=== PATIENT | female | born 1970 | race Caucasian/White ===

== ENCOUNTER 2017-03-03 10:39 | Day surgery (SDC) | payer OTHER ==
[2017-03-03] MEDS ORDERED: LIDOCAINE 1% (MPF) 30 ML INJ (12:23)
[2017-03-03] MEDS ORDERED: BUPIVACAINE 0.5% (SDV) 30 ML INJ (12:23)
[2017-03-03] MEDS ORDERED: DEXAMETHASONE 4 MG/ML 1 ML INJ ×3 (12:24→13:21)
[2017-03-03] MEDS ORDERED: NEOMYC/POLYMYX/BACIT 3.5GM OPH OINT (12:27)
[2017-03-03] MEDS ORDERED: FENTAnyl 50 MCG/ML VIAL (12:59)
[2017-03-03] MEDS ORDERED: PROPOFOL 20 ML (12:59)
[2017-03-03] MEDS ORDERED: MIDAZOLAM 1 MG/ML 2 ML INJ (12:59)
[2017-03-03] MEDS: LIDOCAINE 1% (MPF) 30 ML INJ INJ (13:05)
[2017-03-03] MEDS: BUPIVACAINE 0.5% (SDV) 30 ML INJ INJ (13:05)
[2017-03-03] MEDS ORDERED: KETOROLAC 30 MG INJ (13:20)
[2017-03-03] MEDS ORDERED: CEFAZOLIN 1 GM INJ (13:20)
[2017-03-03] MEDS ORDERED: ACETAMINOPHEN 1000MG/100ML IV 100 ML (13:20)
[2017-03-03] MEDS ORDERED: ONDANSETRON 4 MG INJ (13:20)
[2017-03-03] MEDS ORDERED: METOCLOPRAMIDE 10 MG INJ (13:20)
[2017-03-03] MEDS ORDERED: MEPERIDINE 25 MG INJ IV (13:30)
[2017-03-03] MEDS ORDERED: ONDANSETRON 4 MG INJ IV (13:30)
[2017-03-03] MEDS ORDERED: METOCLOPRAMIDE 10 MG INJ IV (13:30)
[2017-03-03] MEDS ORDERED: DIPHENHYDRAMINE 50 MG INJ IV (13:30)
[2017-03-03] MEDS ORDERED: EPHEDrine SULFATE 50 MG/5 ML SYG IV (13:30)
[2017-03-03] MEDS ORDERED: OXYCODONE/ACETAMINOPHEN (5/325) TAB PO ×2 (13:30)
[2017-03-03] MEDS ORDERED: HYDROmorphONE (0.2 MG/ML) 10ML SYG IV ×3 (13:30)
[2017-03-03] MEDS ORDERED: FENTAnyl 50 MCG/ML VIAL IV ×3 (13:30)
[2017-03-03] MEDS ORDERED: HYDROCODONE/APAP (5/325) TAB PO (15:00)
== END 2017-03-03 15:37 | disposition home or self-care (01) ==
LOC: SDS 10:39
DX: M20.41 Other hammer toe(s) (acquired), right foot (principal)
CPT/HCPCS: 28285

== ENCOUNTER 2018-06-15 07:49 | Day surgery (SDC) | payer OTHER ==
[~2018-06-15 07:49] MED LIST: CEFAZOLIN 2 GM/50 ML (PMX) 50 ML IVPB
[2018-06-15] MEDS: LACTATED RINGER'S 500 ML IV (08:40)
[2018-06-15] MEDS ORDERED: PROPOFOL 20 ML ×2 (08:44→10:07)
[2018-06-15] MEDS ORDERED: FENTAnyl 50 MCG/ML VIAL (08:44)
[2018-06-15] MEDS ORDERED: LIDOCAINE 2% (SDV) 5 ML INJ (08:44)
[2018-06-15] MEDS ORDERED: CEFAZOLIN 1 GM INJ (08:44)
[2018-06-15] MEDS ORDERED: MIDAZOLAM 1 MG/ML 2 ML INJ (08:44)
[2018-06-15] MEDS ORDERED: DEXAMETHASONE 4 MG/ML 5 ML INJ (09:54)
[2018-06-15] MEDS ORDERED: ONDANSETRON 4 MG INJ (09:54)
[2018-06-15] MEDS: BUPIVACAINE 0.5% (SDV) 30 ML INJ (10:01)
[2018-06-15] MEDS: LIDOCAINE 2% (MDV) 20 ML INJ (10:01)
[2018-06-15] MEDS: POLYMYXIN/BACITRACIN 1L IRRIG (10:14)
[2018-06-15] MEDS ORDERED: EPHEDrine 25 MG/5 ML SYG (10:21)
[2018-06-15] MEDS ORDERED: OXYCODONE/ACETAMINOPHEN (5/325) TAB PO (10:30)
[2018-06-15] MEDS ORDERED: MEPERIDINE 25 MG INJ IV (10:30)
[2018-06-15] MEDS ORDERED: HYDROmorphONE 1 MG/5 ML IV SYRINGE IV ×3 (10:30)
[2018-06-15] MEDS ORDERED: ONDANSETRON 4 MG INJ IV (10:30)
[2018-06-15] MEDS: OXYCODONE/ACETAMINOPHEN (5/325) TAB PO (12:35)
== END 2018-06-15 12:40 | disposition home or self-care (01) ==
LOC: SDS 07:49
DX: M20.41 Other hammer toe(s) (acquired), right foot (principal)
CPT/HCPCS: 28285; 73620; 88304; 88311